=== PATIENT | male | born 2000 | race African-American/Black ===

== ENCOUNTER 2022-12-08 16:01 | Emergency (ER) | payer MEDICAID ==
[2022-12-08] MEDS ORDERED: Ketorolac Tromethamine 30 MG/ML VIAL ONE (16:56)
== END 2022-12-08 17:00 | disposition home or self-care (01) ==
LOC: CSHERS 16:01
DX: M25.511 Pain in right shoulder (principal)
CPT/HCPCS: 96372; 99282; J1885